=== PATIENT | male | born 1995 | race Caucasian/White ===

== ENCOUNTER 2021-12-25 10:52 | Observation (INO) ==
[2021-12-25 12:03] LABS: Basophils # (auto) 0.07 K/uL (0-0.2); Basophils % (auto) 0.4 %; Eosinophils # (auto) 0.08 K/uL (0-0.50); Eosinophils % (auto) 0.5 %; Hematocrit (blood only) 46.5 % (40.1-51.0); Hemoglobin 16.2 g/dl (14.0-18.0); Immature Granulocytes # (auto) 0.06 K/uL (0.00-0.02); Immature Granulocytes % (auto) 0.3 %; Lymphocytes # (auto) 1.43 K/uL (1.2-3.4); Lymphocytes % (auto) 8.3 %; Mean Corpuscular Hemoglobin 31.1 pg (25.0-34.0); Mean Corpuscular Hgb Conc 34.8 g/dL (32.0-36.0); Mean Corpuscular Volume 89.3 fL (80.0-100.0); Mean Platelet Volume 10.4 fL (9.4-12.4); Monocytes # (auto) 0.94 K/uL (0.24-0.82); Monocytes % (auto) 5.5 %; Neutrophils # (auto) 14.64 K/uL (1.4-6.5); Platelet Count 252 K/uL (130-400); RDW Coefficient of Variation 12.2 % (11.5-14.5); Red Blood Count 5.21 M/uL (4.63-6.08); White Blood Count 17.22 K/ul (4.8-10.8)
[2021-12-25 12:25] LABS: Albumin Globulin Ratio 1.5 (0.9-2); Albumin Level 4.7 gm/dl (3.4-5.0); BUN Creatinine Ratio 8.8 (10-20); Calcium 9.7 mg/dl (8.5-10.1); Creatinine Clr Calc Pharmacy 128.9 ml/min; Est GFR (African American) 115.4 ml/min; Est GFR (Non-African American) 99.6 ml/min; Globulin 3.1 gm/dl (2.5-4.0); Potassium 3.9 mmol/L (3.5-5.1); Total Protein 7.8 gm/dl (6.0-8.3)
--- NOTE | 2021-12-25 12:28 | Emergency Department Note ---
History of Present Illness General Chief complaint: Abdominal Pain Stated complaint: ABDOMINAL PAIN Time Seen by Provider: 12/25/21 12:05 History of Present Illness Maximum Pain Intensity: 6 18-year-old male presents to the ED with a chief complaint of abdominal pain. Symptoms started 4 AM this morning. The patient states that his periumbilical pain the following up pressure for gas pain. He states that the pain seems to radiate towards the right lower quadrant and suprapubic area as well. Reports a little nausea but no vomiting. Did not have a good appetite this morning. No o ther complaints at this time. No urinary symptoms. No respiratory symptoms Past Med/Surg History Medical History No significant past medical history Surgical History No significant past surgical history Social History Smoking Status: Never smoker marital status: Single current occupational status: employed Feels Safe at Home: Yes Review of Systems A total of 10 systems reviewed and were otherwise negative Physical Exam Vital Signs Vital Signs - 24 hr 12/25/21 11:20 12/25/21 11:56 Temperature 36.9 C Temperature Source Temporal Artery Scan Pulse Rate 80 Pulse Rate [Left Finger] 56 L Pulse Rhythm Regular Pulse Rhythm [Left Finger] Regular Pulse Strength Normal Pulse Strength [Left Finger] Normal Respiratory Rate 20 18 Respiratory Effort / Characteristics Non-Labored Spontaneous Non-Labored Spontaneous Respiratory Depth Normal Normal Respiratory Pattern Regular Blood Pressure 149/98 H Blood Pressure [Right Arm] 120/88 Blood Pressure Mean 115 Blood Pressure Mean [Right Arm] 98 Blood Pressure Position Sitting Blood Pressure Position [Right Arm] Lying Pulse Oximetry 100 100 Oxygen Delivery Method Room Air Room Air Sepsis Recent Fever Within 48 Hours No Sepsis New/Unexplained Change in Mental Status N/A Sepsis Action Taken by Nursing No Action Required CONSTITUTIONAL/VITAL SIGNS: Reviewed / noted above. GENERAL: Non-toxic in appearance. INTEGUMENTARY: Warm, dry, and [place]. HEAD: Normocephalic. EYES: without scleral icterus or trauma. ENT/OROPHARYNX: clear and moist. LYMPHADENOPATHY/NECK: Is supple without lymphadenopathy or meningismus. RESPIRATORY: Clear to auscultation bilaterally. No increased work of breathing. CARDIOVASCULAR: Regular rate and rhythm. GI/ABDOMEN: Soft and tender in the right lower quadrant and suprapubic area. No organomegaly or pulsatile mass. EXTREMITIES: Warm and well perfused. BACK: No CVA tenderness. NEUROLOGICAL: Intact without focal deficits. PSYCHIATRIC: normal affect. MUSCULOSKELETAL: Normally developed with good muscle tone. TRIAGE NURSING DOCUMENTATION REVIEWED. Course Administered Medications Discontinued Medications Ioversol (Optiray 350 100ml) 94 ml IV ONCE ONE Stop: 12/25/21 12:55 Last Admin: 12/25/21 12:54 Dose: 94 ml Documented By: TRAVIS Ketorolac Tromethamine (Ketorolac 30 Mg/Ml Vial) 30 mg IV NOW STA Stop: 12/25/21 13:26 Last Admin: 12/25/21 13:32 Dose: 30 mg Documented By: PEARL Medical Decision Making Differential Diagnosis Differential considered: pancreatitis, hepatitis, acute cholecystitis, AAA, UTI, pyelonephritis, kidney stones, appendicitis, diverticulitis, shingles, bowel obstruction, mesenteric ischemia, intussusception,hernia, testicular torsion. Medical Records Attestation: I reviewed the patient's medical records. Home Medications Current Medication List: was personally reviewed by me Laboratory Data Attestation: I reviewed the patient's lab results. Result diagrams: 12/25/21 11:51 12/25/21 11:51 Lab Results 12/25/21 12/25/21 Range/Units 11:51 11:51 WBC 17.22 H (4.8-10.8) K/ul RBC 5.21 (4.63-6.08) M/uL Hgb 16.2 (14.0-18.0) g/dl Hct 46.5 (40.1-51.0) % MCV 89.3 (80.0-100.0) fL MCH 31.1 (25.0-34.0) pg MCHC 34.8 (32.0-36.0) g/dL RDW Std Deviation 40.0 (36.4-46.3) fL RDW Coeff of Carlos 12.2 (11.5-14.5) % Plt Count 252 (130-400) K/uL MPV 10.4 (9.4-12.4) fL Immature Gran % (Auto) 0.3 % Neut % (Auto) 85.0 % Lymph % (Auto) 8.3 % Cass % (Auto) 5.5 % Eos % (Auto) 0.5 % Baso % (Auto) 0.4 % Neut # (Auto) 14.64 H (1.4-6.5) K/uL Lymph # (Auto) 1.43 (1.2-3.4) K/uL Cass # (Auto) 0.94 H (0.24-0.82) K/uL Eos # (Auto) 0.08 (0-0.50) K/uL Baso # (Auto) 0.07 (0-0.2) K/uL Immature Gran # (Auto) 0.06 H (0.00-0.02) K/uL Sodium 137 (136-145) mmol/L Potassium 3.9 (3.5-5.1) mmol/L Chloride 103 (98-107) mmol/L Carbon Dioxide 29 (21-32) mmol/L Anion Gap 5 (3-11) BUN 9 (6-23) mg/dl Creatinine 1.02 (0.6-1.4) mg/dl Est Cr Clr Drug Dosing 128.9 ml/min Est GFR ( Amer) 115.4 ml/min Est GFR (Non-Af Amer) 99.6 ml/min BUN/Creatinine Ratio 8.8 L (10-20) Glucose 131 H (70-99(Fasting)) mg/dl Calcium 9.7 (8.5-10.1) mg/dl Total Bilirubin 1.0 (0.2-1.0) mg/dl AST 19 (13-39) U/L ALT 15 (7-52) U/L Alkaline Phosphatase 75 (34-104) U/L Total Protein 7.8 (6.0-8.3) gm/dl Albumin 4.7 (3.4-5.0) gm/dl Globulin 3.1 (2.5-4.0) gm/dl Albumin/Globulin Ratio 1.5 (0.9-2) Lipase 18 (11-82) U/L Imaging Data Radiologist's Impression: Abdomen/Pelvis CT 12/25/21 12:20 CT abd pelvis IV con only CLINICAL HISTORY: rlq pain since 4 am TECHNIQUE: Helical axial images of the abdomen and pelvis were obtained and displayed. Automated dose lowering techniques and/or adjustment according to patient size were utilized for this exam. This exam was performed with intravenous contrast. CT DOSE: 373.92 mGy.cm COMPARISON: None available at the time of this dictation. FINDINGS: Lower chest: No acute abnormality. Liver: Unremarkable. No focal lesions are seen. Gallbladder and biliary tree: No calcified gallstones. Normal caliber wall. No intra- or extrahepatic biliary ductal dilation. Pancreas: Unremarkable, no focal lesions. Spleen: Unremarkable. Adrenals: Unremarkable. Kidneys and ureters: A right renal cyst is seen. Bladder: Limited evaluation due to underdistention. Reproductive organs: Unremarkable. Bowel: Appendicoliths are seen. The appendix measures up to 12 mm in diameter. Lymph nodes Retroperitoneal: Unremarkable. Pelvic: Unremarkable. Mesenteric: Unremarkable. Peritoneum: No pneumoperitoneum is seen. No fluid collections are seen to sug gest abscess formation. Vessels: Unremarkable. Abdominal wall: Unremarkable. Bones: Unremarkable. IMPRESSION: Findings are compatible with acute appendicitis without evidence of perforation or abscess formation. ACT 112: Negative or not required by law. Electronically signed by: Phillip Schneider M.D. 12/25/2021 1:31 PM MDM Narrative 18-year-old male presents with an onset of abdominal pain started 4 AM this morning in the periumbilical area. He is some tenderness in the right lower quadrant on exam. White blood cell count 17,000. CT scan suggestive of acute appendicitis. The patient was told the results. I did speak with the surgery service. They will see the patient in consultation. Impression & Plan Acute appendicitis Discharge Plan Visit Data Chief Complaint: Abdominal Pain Stated Complaint: ABDOMINAL PAIN ED Provider: Hesham Rodriguez Discharge Problem: Acute appendicitis Patient Disposition: Being Evaluated by Surgeon Forms Stand Alone Forms: My [facility] Referrals Referrals: PCP,NO [Primary Care Provider] -
[2021-12-25] MEDS ORDERED: OPTIRAY 350 100ml IV ONE (12:54)
[2021-12-25] MEDS ORDERED: KETOROLAC 30 MG/ML VIAL IV STA (13:25)
--- NOTE | 2021-12-25 13:33 | CT Scan Report ---
CT abd pelvis IV con only CLINICAL HISTORY: rlq pain since 4 am TECHNIQUE: Helical axial images of the abdomen and pelvis were obtained and displayed. Automated dose lowering techniques and/or adjustment according to patient size were utilized for this exam. This e xam was performed with intravenous contrast. CT DOSE: 373.92 mGy.cm COMPARISON: None available at the time of this dictation. FINDINGS: Lower chest: No acute abnormality. Liver: Unremarkable. No focal lesions are seen. Gallbladder and biliary tree: No calcified gallstones. Normal caliber wall. No intra- or extrahepatic biliary ductal dilation. Pancreas: Unremarkable, no focal lesions. Spleen: Unremarkable. Adrenals: Unremarkable. Kidneys and ureters: A right renal cyst is seen. Bladder: Limited evaluation due to underdistention. Reproductive organs: Unremarkable. Bowel: Appendicoliths are seen. The appendix measures up to 12 mm in diameter. Lymph nodes Retroperitoneal: Unremarkable. Pelvic: Unremarkable. Mesenteric: Unremarkable. Peritoneum: No pneumoperitoneum is seen. No fluid collections are seen to suggest abscess formation. Vessels: Unremarkable. Abdominal wall: Unremarkable. Bones: Unremarkable. IMPRESSION: Findings are compatible with acute appendicitis without evidence of perforation or abscess formation. ACT 112: Negative or not required by law. Electronically signed by: Phillip Schneider M.D. 12/25/2021 1:31 PM
--- NOTE | 2021-12-25 15:26 | Anesthesiology Consultation ---
Date of Service December 25, 2021 Assessment & Plan (1) Encounter for pre-operative examination: Chart Review Chart Review: data entry initiated History Height/Weight Height: 6 ft 3 in Weight: 92.6 kg Past Medical History Medical History No significant past medical history Past Surgical History Surgical History No significant past surgical history Social History Smoking Status: Never smoker Physical Exam Vital Signs Last Vital Signs Temp 98.4 F 12/25/21 11:20 Pulse 56 L 12/25/21 11:56 Resp 18 12/25/21 11:56 BP 120/88 12/25/21 11:56 Pulse Ox 100 12/25/21 11:56 O2 Del Method 12/25/21 11:56 Testing Laboratory Results 12/25/21 11:51 12/25/21 11:51
--- NOTE | 2021-12-25 15:53 | History & Physical Report ---
Date of Service December 25, 2021 Assessment & Plan (1) Acute appendicitis: Plan: White count 17,[address] showing acute appendicitis and appendicoliths. We will plan for laparoscopic appendectomy this evening. History of Present Illness Primary Care Provider: NO PCP 26-year-old male with lower abdominal pain localizing to the right lower quadrant. Pain began around 4:00 this morning. Hot and cold flashes during the day. No nausea or vomiting. No previous abdominal pain or surgery. Allergies Allergy/AdvReac Type Severity Reaction Status Date / Time No Known Allergies Allergy Unverified 12/25/21 15:31 Home Medications Medication Instructions Recorded Confirmed Type oxycodone-acetaminophen 5 mg-325 1 - 2 tab PO Q4H PRN pain, initial 12/25/21 Rx mg tablet (Percocet) therapy, max 6 daily #15 tabs Past Med/Surg History Medical History No significant past medical history Surgical History No significant past surgical history Social History Smoking Status: Never smoker marital status: Single current occupational status: employed Feels Safe at Home: Yes Review of Systems Constitutional: + anorexia; no fever and no chills Respiratory: no cough and no dyspnea Gastrointestinal: + abdominal pain; no nausea and no vomiting Physical Exam Constitutional: WD/WN, vitals as above Respiratory: normal respiratory effort, lungs clear to auscultation Cardiovascular: RRR, no murmur, no edema Gastrointestinal (Abdomen): Inspection/Auscultation: abdomen not distended Percussion/Palpation: + abdomen tender (RLQ) and abdomen soft; no guarding Results & Data Results & Data ([facility]) Vital Signs (Past 12 Hours) Vital Signs Temp Pulse Pulse Resp BP BP Pulse Ox 12/25/21 15:38 76 18 142/72 H 100 12/25/21 11:56 56 L 18 120/88 100 12/25/21 11:20 36.9 C 80 20 149/98 H 100 O2 Del Method 12/25/21 15:38 Room Air 12/25/21 11:56 Room Air 12/25/21 11:20 Room Air Supervising Physician Co-Signing Physician Notes As per Juan trimble Right lower quadrant tenderness rebound or McBurney's point CT scan findings compatible with acute appendicitis elevated white count We will plan for laparoscopic appendectomy possible open risk and complication explained to the patient proceed accordingly also explained to the patient the anticipated recovery time All question answered Did not mention that anyone should be called after surgery stating he had talked to them ahead of time Preop antibiotic ordered Will sign permit in the preop area PG Care Time/CCT Total # of Minutes Spent Total Time Spent with Patient: Total time spent is greater than 50% in coordination of care (as documented) at patient's floor/unit and/or counseling patient: Coding Level of Care Code None Diagnoses Acute appendicitis K35.80
[2021-12-25] MEDS ORDERED: cefOXitin 2,000 MG/60 ML BAG IV STA (16:32)
[2021-12-25] MEDS ORDERED: ATROPINE SULFATE 0.1 MG/ML 10ML SYR IV PRN (17:17)
[2021-12-25] MEDS ORDERED: ONDANSETRON INJ 2 MG/ML 2 ML VIAL IV PRN (17:17)
[2021-12-25] MEDS ORDERED: ePHEDrine sulfate 50 MG/ML AMP IV PRN (17:17)
[2021-12-25] MEDS ORDERED: fentaNYL citrate 100 MCG/2 ML VIAL IV PRN (17:17)
[2021-12-25] MEDS ORDERED: LIDOCAINE 2% 2 ML VIAL/AMP(20MG/ML) INFIL ONE (17:51)
[2021-12-25] MEDS ORDERED: PROPOFOL IV EMULSION 10 MG/ML 20 ML VIAL IV ONE ×2 (17:51→18:34)
[2021-12-25] MEDS ORDERED: fentaNYL citrate 100 MCG/2 ML VIAL ONE ×2 (17:52→18:39)
[2021-12-25] MEDS ORDERED: LIDOCAINE 1%/EPINEPHRINE 1:100,000 50 ML VIAL ONE (18:04)
[2021-12-25] MEDS ORDERED: SUCCINYLCHOLINE CHLORIDE 20 MG/ML 10 ML VIAL IV ONE (18:34)
[2021-12-25] MEDS ORDERED: ROCURONIUM BROMIDE 10 MG/ML 5 ML VIAL IV ONE (18:34)
[2021-12-25] MEDS ORDERED: ONDANSETRON INJ 2 MG/ML 2 ML VIAL ONE (18:40)
--- NOTE | 2021-12-25 19:20 | Post Operative Brief Note ---
PG Immediate Post Op with CF Date of Surgery December 25, 2021 Pre & Post Diagnosis Operation Date: 12/25/21 16:30 Pre-Op Diagnosis: Abdominal Pain Post-Op Diagnosis: Abdominal Pain I identified the patient and participated in the time-out.: Yes Procedure Operation Date: 12/25/21 16:30 Actual Procedures p Laparoscopic Appendectomy - Dennis Coon MD, FACS Surgeon Dennis Coon MD, FACS Paper Wood Cutter 0 Estimated Blood Loss 5 Findings Consistent with Post-Op Diagnosis Specimens Specimen Description: A) Appendix
--- NOTE | 2021-12-25 19:32 | Operative Report ---
PG Post Operative Report Pre & Post Diagnosis Operation Date: 12/25/21 16:30 Pre-Op Diagnosis: Abdominal Pain Post-Op Diagnosis: Abdominal Pain I identified the patient and participated in the time-out.: Yes Procedure Operation Date: 12/25/21 16:30 Actual Procedures p Laparoscopic Appendectomy - Dennis Coon MD, FACS Patient was brought into the operating theater general endotracheal anesthesia supine position the abdomen was prepped byline solution properly draped systemic antibiotics on board patient identified timeout was had made a small incision transversely above the umbilicus sufficient to accommodate a Veress needle we insufflated to approximate millimeters of mercury with a 5 mm trocar was placed point of entry specter drainage identified right lower quadrant was visualized we can see the cecum would not see the appendix in the retrocecal station placed a 5 mm right upper quadrant point with preemptive local analgesic 1% Xylocaine at this point we were able to elevate the cecum and could identify the appendix which was enlarged extending down towards the pelvic brim and the base of it there was some adhesions that appear to be some fluid. At this point I converted the 5 mm supraumbilical port by enlarging the incision dilating the tract with a Myesha clamp to place a 12 mm port this 5 Bauer port was placed in the left lower quadrant the preemptive local analgesic and direct visualization camera was placed in left lower quadrant we able to placed atraumatic graspers in the supraumbilical and right upper quadrant port rate was elevated the appendix then we able to create a window between the mesoappendix and cecum using the sharp dissection with the blunt dissector no bleeding was appreciated we able to visualize through and through the area then we brought in a purple load and fired at the base and the tunnel that we had created completely the appendix from the base on the cecum the area was checked for stasis appears satisfactory some adhesions to the mesoappendix were fine we divided between scissor and electrocautery staying close the appendix and we used 10 mm clips to divide the mesoappendix in multiple layers securing the hemostasis the appendix and the mesoappendix was elevated the line of resection staple line on the cecum was visualized again and appeared to be fairly many bl eeding we were well away from the terminal ileum the appendix then placed in an Endopouch and taken out through the umbilical port we actually had to enlarge the port sites I dilated the tract and enlarging the incision since the the appendix the tip of this was quite large. This was removed intact and 30 Endopouch at this point we then reinserted the 12 mm trocar placed the patient in reverse Trendelenburg position and irrigated the right gutter and the pelvic area suction out checked hemostasis again was excellent this point on direct visualization police and the camera right upper quadrant trocar site we remove the left lower quadrant trocar and then placed the camera in the umbilical area to visualize the right upper quadrant trocar and there was no bleeding then we remove the umbilical area in the last the right upper quadrant trocar wounds were closed by using fascial stitch of 2 interrupted [id number] in the supraumbilical area and 1 interrupted wound securing the fascia and 4-0 Monocryl was used subcuticularly Steri-Strips applied the procedure was tolerated well by the patient estimate blood loss 5 cc Addendum the patient did not want anybody to be called after surgery Surgeon Dennis Coon MD, FACS Strategic Communications Manager 0 Estimated Blood Loss 5 Findings Consistent with Post-Op Diagnosis Acutely inflamed appendix dilated with no gross perforation some fibrinous exudate appreciated Specimens Appendix Drains None Complications None Indications Acute appendicitis clinically and radiographically Description of Procedure merda I attest to the content of the Intraoperative Record and any orders documented therein. Any exceptions are noted below.
[2021-12-25] MEDS ORDERED: KETOROLAC 30 MG/ML VIAL ONE (19:39)
--- NOTE | 2021-12-25 19:51 | Anesthesiology Progress Note ---
Date of Service December 25, 2021 Anesthesia Post Procedure Vital Signs Vital Signs: Temp Pulse Pulse Pulse Resp BP BP 12/25/21 19:28 97.9 F 95 H 18 12/25/21 15:38 76 18 142/72 H 12/25/21 11:56 56 L 18 120/88 12/25/21 11:20 98.4 F 80 20 149/98 H Pulse Ox O2 Del Method 12/25/21 19:28 12/25/21 15:38 100 Room Air 12/25/21 11:56 100 Room Air 12/25/21 11:20 100 Room Air Pain Intensity Lower Abdomen: Pain Intensity: 6 Transfer of Care Handoff Completed per policy Notes Mental Status: alert / awake / arousable and participated in evaluation Patient Amnestic to Procedure: Yes Nausea / Vomiting: adequately controlled Pain: adequately controlled Airway Patency, RR, SpO2: stable & adequate BP & HR: stable & adequate Hydration State: stable & adequate Anesthetic Complications: no major complications apparent and Pt Satisfied with anesthetic care
[2021-12-25] MEDS ORDERED: MoRPHine SULFATE 2 MG/ML CARP IV PRN (20:22)
[2021-12-25] MEDS ORDERED: oxyCODONE/ACETAMINOPHEN 5mg/325mg TAB PO PRN (20:22)
[2021-12-25] MEDS: LACTATED RINGER'S 1,000 ML IV SCH (21:08)
[2021-12-25] MEDS: cefOXitin 2,000 MG in DEXTROSE 5% 50 ML IV SCH (22:16)
[2021-12-26] MEDS: LACTATED RINGER'S 1,000 ML IV SCH (05:09)
[2021-12-26] MEDS: cefOXitin 2,000 MG in DEXTROSE 5% 50 ML IV SCH (05:09)
--- NOTE | 2021-12-26 06:38 | Surgery Progress Note ---
Date of Service December 26, 2021 Assessment & Plan (1) Acute appendicitis: Plan: Operative findings were discussed with the patient This point the patient can be discharged instructions been given return to office in 1 week no driving till next week no lifting anything evergreen 10 pounds Plan Discharge after breakfast Return to our office in 1 week sooner if there is any issue Admission and Anticipated Discharge Date Admission Date: December 25, 2021 Subjective No real complaints no significant abdominal pain Physical Exam Physical Exam: Alert coherent resting comfortably The abdomen is completely benign trocar sites Steri-Strips intact with no ecchymosis or hematoma Results & Data ([facility]) Vital Signs (Past 12 Hours) Vital Signs Temp Pulse Pulse Resp BP Pulse Ox O2 Del Method 12/26/21 02:52 37.3 C 92 H 16 131/76 99 Room Air 12/25/21 23:45 37.4 C 81 16 109/67 98 Room Air 12/25/21 22:48 37.0 C 63 16 123/72 99 Room Air 12/25/21 21:45 37.3 C 60 16 127/71 100 Room Air 12/25/21 21:15 37.1 C 70 16 111/72 100 Room Air 12/25/21 20:45 37.2 C 57 L 20 114/68 100 Room Air 12/25/21 20:35 53 L 17 115/60 100 Room Air 12/25/21 20:25 63 17 111/58 L 100 Room Air 12/25/21 20:15 58 L 18 104/59 L 100 Room Air 12/25/21 20:05 59 L 20 118/73 100 Room Air 12/25/21 19:55 36.5 C 79 21 131/75 0 L Room Air 12/25/21 19:45 77 20 131/75 100 Room Air 12/25/21 19:35 79 20 141/74 H 100 Room Air 12/25/21 19:28 36.6 C 95 H 18 129/67 100 Room Air PG Care Time/CCT Total # of Minutes Spent Total Time Spent with Patient: Total time spent is greater than 50% in coordination of care (as documented) at patient's floor/unit and/or counseling patient: Coding Level of Care Code None Diagnoses Acute appendicitis K35.80
--- NOTE | 2021-12-28 13:44 | Discharge Summary ---
Date of Service December 26, 2021 Admission HPI Per Admitting Provider 26-year-old male with lower abdominal pain localizing to the right lower quadrant. Pain began around 4:00 this morning. Hot and cold flashes during the day. No nausea or vomiting. No previous abdominal pain or surgery. Principal Diagnosis Acute appendicitis Discharge Exam Constitutional WD/WN, vitals as above Gastrointestinal (Abdomen) Inspection/Auscultation: + abdominal surgical incision (dry); abdomen not distended Percussion/Palpation: abdomen soft Discharge Data Allergies Allergy/AdvReac Type Severity Reaction Status Date / Time No Known Allergies Allergy Unverified 12/25/21 15:31 Consultations 12/25/21 15:20 ED Decision to Admit Stat Procedures Performed Operation Date: 12/25/21 16:30 Actual Procedures p Laparoscopic Appendectomy - Dennis Coon MD, FACS Ordered Studies 12/25/21 12:20 CT abd pelvis IV con only Stat Hospital Course (1) Acute appendicitis: 26-year-old male presented to the ER with abdominal pain. White count was 17,[address] was consistent with acute appendicitis. He was taken to the operating room for laparoscopic appendectomy and transferred to the surgical floor for overnight observation. In the morning he was able to advance diet and tolerate oral analgesics. He was stable for discharge home. Total Time Total Time Spent Total Time Spent (In Minutes): 15 Discharge Plan Discharge Items Patient Disposition: Home - Self-Care Reason For Visit: ABDOMINAL PAIN Discharge Diagnosis: s/p lap appy Activity: As commented below Lifting: No more than 10 pounds Lifting Comment: until seen in offfice Bathing: Keep incision dry Bathing Comment: may shower in am Sexual Activity: Wait until after follow-up appointment Exercise/Sports: Wait until after follow-up appointment Driving/Machine Use: for 3 days Non-emergency contact: Primary Care Provider Call non-emergency contact if: your pain is concerning for you, you have a fever, your wound has increased redness and your wound pain has increased Follow-up/Referrals: Dennis Coon MD, FACS [Surgeon] - 01/03/22 1:30 pm PCP,NO [Primary Care Provider] - Diet: Regular Addtl Attending Provider Instructions: Addtl Chemical Etch Operator Provider Instructions: Ok to shower tomorrow, leave steri-strips on for 1 week No driving for 3-4 days No lifting more than 10 pounds for 2 weeks SPECIAL CARE INSTRUCTIONS: * Cover incisions and change daily for comfort/drainage. * May use ibuprofen for pain as tolerated. * Expect some swelling and bruising. Call your doctor if: * Temperature above 101 degrees * Pain not relieved by pain medicine ordered * There is increased drainage or redness from any incision * You have any unanswered questions or concerns [phone]. FOLLOW UP VISIT: Please call the office for a follow-up visit in 1 week. OFFICE PHONE NUMBER: Dr. Coon Office Pending Studies at Discharge: No Stand-Alone Forms: Work/School Release (ED), [facility], [facility] Emergency Department, Important Visit Information Medications and DC Order Prescriptions: New oxycodone-acetaminophen [Percocet] 5-325 mg tablet 1 - 2 tab PO Q4H PRN (Reason: pain, initial therapy, max 6 daily) Qty: 15 0RF Discharge Orders: Discharge Order (Routine); Ordered 12/26/21 Ordered By: Dennis Coon Admission Data Admit Date/Time: 12/25/21 19:34 Attending Provider: Dennis Coon Admit Provider: Dennis Coon Primary Care Provider: PCP,NO Other Providers: Dennis Coon Other Interventions: Discharge Summary Assessment (RN) Last Done: 12/26/21 08:04 Coding Level of Care Code D/C DAY MANAGEMENT <30 MINS Diagnoses Acute appendicitis K35.80
== END 2021-12-26 10:54 | disposition home or self-care (01) | DRG 343 ==
LOC: ED 10:52 → OR 18:00 → INTOOBSV 19:34 → 3N 19:34